=== PATIENT | male | born 1980 | race African-American/Black ===

== ENCOUNTER 2017-01-01 11:54 | Inpatient (IN) | payer OTHER ==
[2017-01-01 12:00] VITALS: BMI 26.1
--- NOTE | 2017-01-01 15:08 | HP ---
CIWA Score - CIWA Score Nausea/Vomitin Muscle Tremors: 3 Anxiety: 3 Agitation: 3 Paroxysmal Sweats: 2 Orientation: 0-Oriented Tacttile Disturbances: 2-Mild Itch/Numbness/Burn Auditory Disturbances: 2-Mild Harshness/Frighten Visual Disturbances: 2-Mild Sensitivity Headache: 2-Mild CIWA-Ar Total Score: 22 Admission ROS BHS - HPI Chief Complaint: i need help to stop drinking alcohol Allergies/Adverse Reactions: Allergies Allergy/AdvReac Type Severity Reaction Status Date / Time lactose Allergy Mild Verified 01/01/17 14:42 History of Present Illness: this 36 years old male with alcohol and cocaine dependence,seeking detox,never been in treatment before migraine headache depression ptsd syncope alcohol related hypertension asthma arthritis Exam Limitations: No Limitations - Ebola screening Have you traveled outside of the country in the last 21 days: No Have you had contact with anyone from an Ebola affected area: No Have you been sick,other than usual withdrawal symptoms: No Do you have a fever: No - Review of Systems Constitutional: Loss of Appetite, Malaise, Night Sweats, Changes in sleep EENT: reports: Tearing, Nose Congestion Respiratory: reports: No Symptoms reported Cardiac: reports: No Symptoms Reported GI: reports: Diarrhea, Nausea, Vomiting, Abdominal cramping : reports: No Symptoms Reported Musculoskeletal: reports: Back Pain, Muscle Pain Integumentary: reports: Dryness Neuro: reports: Headache, Tremors Endocrine: reports: No Symptoms Reported Hematology: reports: No Symptoms Reported Psychiatric: reports: No Sypmtoms Reported, Judgement Intact, Mood/Affect Appropiate, Orientated x3, Depressed Patient History - Patient Medical History Hx Asthma: Yes (Pt is on MDI for asthma.) Hx Chronic Obstructive Pulmonary Disease (COPD): No Hx Cardiac Disorders: No Hx Hypertension: Yes (not on meds.) Hx Seizures: No Hx Diabetes: No Hx Gastrointestinal Disorders: No Hx Liver Disease: No Hx Genitourinary Disorders: No Hx Sexually Transmitted Disorders: No Hx Renal Disease (ESRD): No Hx Thyroid Disease: No Hx Human Immunodeficiency Virus (HIV): No (years ago negative) Hx Hepatitis C: No Hx Depression: Yes Hx Suicide Attempt: Yes (tried to overdose 1 year ago.) Hx Bipolar Disorder: No Hx Schizophrenia: No Other Medical History: no suicidal,no homicidal - Patient Surgical History Past Surgical History: No - PPD History Previous Implant?: Yes Documented Results: Negative w/o proof Implanted On Prior [facility] Admission?: No PPD to be Administered?: Yes - Smoking Cessation Smoking history: Current every day smoker Have you smoked in the past 12 months: Yes Aproximately how many cigarettes per day: 20 Hx Chewing Tobacco Use: No Initiated information on smoking cessation: Yes 'Breaking Loose' booklet given: 01/01/17 - Substance & Tx. History Hx Alcohol Use: Yes Hx Substance Use: Yes Substance Use Type: Alcohol, Cocaine, Heroin Hx Substance Use Treatment: No - Substances Abused Heroin Route: Inhalation Frequency: Daily Amount used: 10-20 bags Age of first use: 21 Date of Last Use: 12/31/16 Cocaine Route: Smoking Frequency: Daily Amount used: $200-300 Age of first use: 21 Date of Last Use: 12/31/16 Alcohol Route: Oral Frequency: Daily Amount used: 3 40 oz beers Age of first use: 17 Date of Last Use: 12/31/16 Family Disease History - Family Disease History Family History: Denies Admission Physical Exam [facility] - Vital Signs Vital Signs: Vital Signs - 24 hr 01/01/17 11:58 Temperature 98.8 F Pulse Rate 80 Respiratory 18 Rate Blood Pressure 140/90 - Physical General Appearance: Yes: Moderate Distress, Tremorous, Irritable, Sweating, Anxious HEENTM: Yes: Normal ENT Inspection, MARY ANNE, Pharynx Normal Respiratory: Yes: Lungs Clear, Normal Breath Sounds, No Respiratory Distress Neck: Yes: Within Normal Limits Breast: Yes: Breast Exam Deferred Cardiology: Yes: Within Normal Limits, Regular Rhythm, Regular Rate, S1, S2 Abdominal: Yes: Within Normal Limits, Normal Bowel Sounds, Non Tender, Flat, Soft Genitourinary: Yes: Within Normal Limits Back: Yes: Muscle Spasm Musculoskeletal: Yes: full range of Motion, Back pain, Joint Stiffness, Muscle Pain Extremities: Yes: Normal Range of Motion, Tremors Neurological: Yes: Within Normal Limits, electrical controls technician II-XII NML intact, Fully Oriented, Alert, Motor Strength 5/5 Integumentary: Yes: Dry Lymphatic: Yes: Within Normal Limits - Diagnostic (1) Opioid dependence with withdrawal Current Visit: Yes Status: Acute (2) Alcohol dependence with uncomplicated withdrawal Current Visit: Yes Status: Acute (3) Cocaine dependence Current Visit: Yes Status: Acute (4) Migraine headache Current Visit: Yes Status: Acute (5) Depression Current Visit: Yes Status: Acute (6) PTSD (post-traumatic stress disorder) Current Visit: Yes Status: Acute (7) Syncope Current Visit: Yes Status: Acute (8) Arthritis Current Visit: Yes Status: Acute Cleared for Admission [facility] - Detox or Rehab [facility] Level of Care: Medically Managed Detox Regimen/Protocol: Methadone/Librium S Breath Alcohol Content Breath Alcohol Content: 0 Urine Drug Screen - Results Drug Screen Negative: No Urine Drug Screen Results: DIMAS-Cocaine, OPI-Opiates
[2017-01-01] MEDS ORDERED: NICOTINE POLACRILEX 2 MG GUM BUC PRN (15:26)
[2017-01-01] MEDS ORDERED: hydrOXYzine PAMOATE 25 MG CAPSULE (FP) PO PRN (15:26)
[2017-01-01] MEDS ORDERED: MAGNESIUM CITRATE 300 ML BOTTLE PO PRN (15:26)
[2017-01-01] MEDS ORDERED: P-EPHED 60MG/TRIPROLIDI 2.5MG TABLET PO PRN (15:26)
[2017-01-01] MEDS ORDERED: guaiFENesin/D-METHORPHAN HB 10 ML UNIT-DOSE CUPS PO PRN (15:26)
[2017-01-01] MEDS ORDERED: MENTHOL/PHENOL 1 EACH UD MM PRN (15:26)
[2017-01-01] MEDS ORDERED: LOPERAMIDE HCL 2 MG CAPSULE PO PRN (15:26)
[2017-01-01] MEDS ORDERED: chlordiazePOXIDE HCL 25 MG CAPSULE PO PRN (15:26)
[2017-01-01] MEDS ORDERED: MAG HYDROX/AL HYDROX/SIMETH 30 ML UNIT-DOSE CUP PO PRN (15:26)
[2017-01-01] MEDS ORDERED: ACETAMINOPHEN 325 MG TABLET (FP) PO PRN (15:26)
[2017-01-01] MEDS ORDERED: MAGNESIUM HYDROX 2400MG/30ML ORAL SUSPENSION 30 ML CUP PO PRN (15:26)
[2017-01-01] MEDS ORDERED: ALBUTEROL SO4 18 GM HFA INHALER IH PRN (15:29)
[2017-01-01] MEDS ORDERED: METHADONE HCL 10 MG TABLET (FOR DETOX USE ONLY) PO ONE ×2 (15:41→23:00)
[2017-01-01] MEDS ORDERED: chlordiazePOXIDE HCL 25 MG CAPSULE PO ONE (15:41)
[2017-01-01] MEDS ORDERED: METHADONE HCL 10 MG TABLET (FOR DETOX USE ONLY) ONE (18:05)
[2017-01-01] MEDS: chlordiazePOXIDE HCL 25 MG CAPSULE PO SCH ×2 (18:24→22:09)
[2017-01-01] MEDS: NICOTINE 21 MG/24 HOURS TOPICAL PATCH TD SCH (18:25)
[2017-01-01] MEDS: THIAMINE HCL 100 MG TABLET (FP) PO SCH (22:08)
[2017-01-01] MEDS: IBUPROFEN 400 MG TABLET (FP) PO PRN (22:11)
[2017-01-02 01:50] LABS: PH,URINE 7.5 (5.0-8.0); URINE APPEARANCE CLEAR; URINE BILIRUBIN NEGATIVE (NEGATIVE); URINE BLOOD NEGATIVE (NEGATIVE); URINE COLOR YELLOW; URINE GLUCOSE (UA) NEGATIVE (NEGATIVE); URINE KETONE NEGATIVE (NEGATIVE); URINE NITRITE NEGATIVE (NEGATIVE); URINE PROTEIN TRACE (NEGATIVE); URINE UROBILINOGEN 0.2 mg/dL (0.2-1.0)
[2017-01-02] MEDS: chlordiazePOXIDE HCL 25 MG CAPSULE PO SCH ×4 (05:46→22:07)
[2017-01-02 09:48] LABS: MCHC 31.9 g/dl (32.0-35.9); MEAN CELL VOLUME 75.1 fl (80-96); MEAN PLT VOLUME 9.4 fl (7.5-11.1); PLATELET COUNT 245 K/MM3 (134-434); RDW 14.1 % (11.9-15.9); WHITE BLOOD COUNT 9.3 K/mm3 (4.0-10.0)
[2017-01-02 09:54] LABS: URINE LEUK ESTERASE Negative (NEGATIVE)
--- NOTE | 2017-01-02 09:57 | EKG ---
Test Reason : Blood Pressure : / mmHG Vent. Rate : 080 BPM Atrial Rate : 080 BPM P-R Int : 138 ms QRS Dur : 096 ms QT Int : 386 ms P-R-T Axes : 077 067 032 degrees QTc Int : 445 ms NORMAL SINUS RHYTHM INCOMPLETE RIGHT BUNDLE BRANCH BLOCK NO PREVIOUS ECGS AVAILABLE Confirmed by SIMRAN NGUYEN MD ([id number]) on 01/02/2017 9:56:56 AM Referred By: Confirmed By:SIMRAN NGUYEN MD
[2017-01-02] MEDS ORDERED: METHADONE HCL 10 MG TABLET (FOR DETOX USE ONLY) PO SCH (10:00)
[2017-01-02 10:07] LABS: ALBUMIN 3.8 g/dl (3.4-5.0); ALK PHOS 61 U/L (45-117); ANION GAP 7 (8-16); BILIRUBIN,TOTAL 0.6 mg/dL (0.2-1.0); CALCIUM 8.7 mg/dL (8.5-10.1); CO2 24 mmol/L (21-32); CREATININE 1.2 mg/dL (0.7-1.3); GLUCOSE,RANDOM 106 mg/dL (74-106); SGOT/AST 28 U/L (15-37); SGPT/ALT 49 U/L (12-78)
[2017-01-02] MEDS: PRENATAL VITAMINS W/ FOLIC ACID TABLET (FP) PO SCH (10:16)
[2017-01-02] MEDS: NICOTINE 21 MG/24 HOURS TOPICAL PATCH TD SCH (10:17)
[2017-01-02] MEDS: IBUPROFEN 400 MG TABLET (FP) PO PRN ×2 (10:20→17:22)
--- NOTE | 2017-01-02 11:15 | PN ---
[facility] CIWA - CIWA Score Nausea/Vomitin Muscle Tremors: 3 Anxiety: 3 Agitation: 3 Paroxysmal Sweats: 1-Minimal Palms Moist Orientation: 0-Oriented Tacttile Disturbances: 1-Very Mild Itch/Numbness Auditory Disturbances: 1-Very Mild Visual Disturbances: 0-None Headache: 2-Mild CIWA-Ar Total Score: 17 BHS COWS - Scale Resting Pulse: 0= SC 80 or Below Sweatin= Chills/Flushing Restless Observation: 3= Extraneous Movement Pupil Size: 1= Pupils >than Normal Bone or Joint Aches: 2= Severe Diffuse Aches Runny Nose/ Eye Tearin= Runny Nose/Eyes GI Upset > 30mins: 2= Nausea/Diarrhea Tremor Observation of Outstretched Hands: 2= Slight Tremor Visible Yawning Observation: 1= 1-2x During Session Anxiety or Irritability: 2=Irritable/Anxious Goose Flesh Skin: 0=Smooth Skin COWS Score: 16 S Progress Note (SOAP) Subjective: ALERT,IRRITABLE,ANXIOUS,INTERRUPTED SLEEP,PAIN IN THE BODY AND BACK,NASAL CONGESTION Objective: 01/02/17 11:13 Vital Signs Temperature 97.1 F L 01/02/17 09:31 Pulse Rate 71 01/02/17 09:31 Respiratory Rate 18 01/02/17 09:31 Blood Pressure 115/75 01/02/17 09:31 O2 Sat by Pulse Oximetry (%) EKG NSR,NORMAL ECG Laboratory Last Values WBC 9.3 K/mm3 (4.0-10.0) 01/02/17 06:00 RBC 5.41 M/mm3 (4.00-5.60) 01/02/17 06:00 Hgb 12.9 GM/dL (11.7-16.9) 01/02/17 06:00 Hct 40.6 % (35.4-49) 01/02/17 06:00 MCV 75.1 fl (80-96) L 01/02/17 06:00 MCH 24.0 pg (25.7-33.7) L 01/02/17 06:00 MCHC 31.9 g/dl (32.0-35.9) L 01/02/17 06:00 RDW 14.1 % (11.9-15.9) 01/02/17 06:00 Plt Count 245 K/MM3 (134-434) 01/02/17 06:00 MPV 9.4 fl (7.5-11.1) 01/02/17 06:00 Sodium 141 mmol/L (136-145) 01/02/17 06:00 Potassium 4.1 mmol/L (3.5-5.1) 01/02/17 06:00 Chloride 110 mmol/L (98-107) H 01/02/17 06:00 Carbon Dioxide 24 mmol/L (21-32) 01/02/17 06:00 Anion Gap 7 (8-16) L 01/02/17 06:00 BUN 9 mg/dL (7-18) 01/02/17 06:00 Creatinine 1.2 mg/dL (0.7-1.3) 01/02/17 06:00 Creat Clearance w eGFR > 60 (>60) 01/02/17 06:00 Random Glucose 106 mg/dL (74-106) 01/02/17 06:00 Calcium 8.7 mg/dL (8.5-10.1) 01/02/17 06:00 Total Bilirubin 0.6 mg/dL (0.2-1.0) 01/02/17 06:00 AST 28 U/L (15-37) 01/02/17 06:00 ALT 49 U/L (12-78) 01/02/17 06:00 Alkaline Phosphatase 61 U/L (45-117) 01/02/17 06:00 Total Protein 7.0 g/dl (6.4-8.2) 01/02/17 06:00 Albumin 3.8 g/dl (3.4-5.0) 01/02/17 06:00 Urine Color Yellow 01/01/17 22:30 Urine Appearance Clear 01/01/17 22:30 Urine pH 7.5 (5.0-8.0) 01/01/17 22:30 Ur Specific [place] 1.020 (1.001-1.035) 01/01/17 22:30 Urine Protein Trace (NEGATIVE) H 01/01/17 22:30 Urine Glucose (UA) Negative (NEGATIVE) 01/01/17 22:30 Urine Ketones Negative (NEGATIVE) 01/01/17 22:30 Urine Blood Negative (NEGATIVE) 01/01/17 22:30 Urine Nitrite Negative (NEGATIVE) 01/01/17 22:30 Urine Bilirubin Negative (NEGATIVE) 01/01/17 22:30 Urine Urobilinogen 0.2 mg/dL (0.2-1.0) 01/01/17 22:30 Ur Leukocyte Esterase Negative (NEGATIVE) 01/01/17 22:30 Assessment: 01/02/17 11:15 WITHDRAWAL SYMPTOM Plan: CONTINUE DETOX
[2017-01-02] MEDS ORDERED: PNEUMOC 13-VAL CONJ-DIP CRM/PF 0.5 ML DISP.SYRIN IM ONE (12:00)
[2017-01-02] MEDS ORDERED: FLU VACCINE QUAD 60 MCG/0.5 ML (MDV 17-18) IM ONE (12:00)
[2017-01-02] MEDS ORDERED: PNEUMOCOCCAL 23 VACCINE 0.5 ML VIAL IM ONE (12:00)
[2017-01-02] MEDS: FLUTICASONE PROP 0.05% 16 GM NASAL SPRAY NS SCH ×2 (12:19→22:07)
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
[2017-01-02] MEDS: THIAMINE HCL 100 MG TABLET (FP) PO SCH (22:07)
[2017-01-02] MEDS: QUEtiapine FUMARATE 100 MG TABLET (FP) PO SCH (22:07)
[2017-01-03] MEDS: chlordiazePOXIDE HCL 25 MG CAPSULE PO SCH ×2 (05:54→10:13)
[2017-01-03] MEDS: FLUTICASONE PROP 0.05% 16 GM NASAL SPRAY NS SCH ×2 (10:13→22:03)
[2017-01-03] MEDS: PRENATAL VITAMINS W/ FOLIC ACID TABLET (FP) PO SCH (10:13)
[2017-01-03] MEDS: QUEtiapine FUMARATE 100 MG TABLET (FP) PO SCH ×2 (10:13→22:03)
[2017-01-03] MEDS: METHADONE HCL 5 MG TABLET (FOR DETOX USE ONLY) PO SCH (10:13)
[2017-01-03] MEDS: NICOTINE 21 MG/24 HOURS TOPICAL PATCH TD SCH (10:14)
--- NOTE | 2017-01-03 16:07 | PN ---
[facility] CIWA - CIWA Score Nausea/Vomitin-No Nausea/No Vomiting Muscle Tremors: 3 Anxiety: 4-Mod. Anxious/Guarded Agitation: 3 Paroxysmal Sweats: 3 Orientation: 0-Oriented Tacttile Disturbances: 0-None Auditory Disturbances: 0-None Visual Disturbances: 0-None Headache: 0-None Present CIWA-Ar Total Score: 13 S Progress Note (SOAP) Subjective: Anxiety,tremors,sweating,interrupted sleep,restless. Objective: 01/03/17 16:06 Vital Signs - 8 hr 01/03/17 01/03/17 10:14 14:56 Temperature 97.0 F L 96.8 F L Pulse Rate 78 83 Respiratory 16 20 Rate Blood Pressure 127/68 103/59 Laboratory Last Values WBC 9.3 K/mm3 (4.0-10.0) 01/02/17 06:00 RBC 5.41 M/mm3 (4.00-5.60) 01/02/17 06:00 Hgb 12.9 GM/dL (11.7-16.9) 01/02/17 06:00 Hct 40.6 % (35.4-49) 01/02/17 06:00 MCV 75.1 fl (80-96) L 01/02/17 06:00 MCH 24.0 pg (25.7-33.7) L 01/02/17 06:00 MCHC 31.9 g/dl (32.0-35.9) L 01/02/17 06:00 RDW 14.1 % (11.9-15.9) 01/02/17 06:00 Plt Count 245 K/MM3 (134-434) 01/02/17 06:00 MPV 9.4 fl (7.5-11.1) 01/02/17 06:00 Sodium 141 mmol/L (136-145) 01/02/17 06:00 Potassium 4.1 mmol/L (3.5-5.1) 01/02/17 06:00 Chloride 110 mmol/L (98-107) H 01/02/17 06:00 Carbon Dioxide 24 mmol/L (21-32) 01/02/17 06:00 Anion Gap 7 (8-16) L 01/02/17 06:00 BUN 9 mg/dL (7-18) 01/02/17 06:00 Creatinine 1.2 mg/dL (0.7-1.3) 01/02/17 06:00 Creat Clearance w eGFR > 60 (>60) 01/02/17 06:00 Random Glucose 106 mg/dL (74-106) 01/02/17 06:00 Calcium 8.7 mg/dL (8.5-10.1) 01/02/17 06:00 Total Bilirubin 0.6 mg/dL (0.2-1.0) 01/02/17 06:00 AST 28 U/L (15-37) 01/02/17 06:00 ALT 49 U/L (12-78) 01/02/17 06:00 Alkaline Phosphatase 61 U/L (45-117) 01/02/17 06:00 Total Protein 7.0 g/dl (6.4-8.2) 01/02/17 06:00 Albumin 3.8 g/dl (3.4-5.0) 01/02/17 06:00 Urine Color Yellow 01/01/17 22:30 Urine Appearance Clear 01/01/17 22:30 Urine pH 7.5 (5.0-8.0) 01/01/17 22:30 Ur Specific [place] 1.020 (1.001-1.035) 01/01/17 22:30 Urine Protein Trace (NEGATIVE) H 01/01/17 22:30 Urine Glucose (UA) Negative (NEGATIVE) 01/01/17 22:30 Urine Ketones Negative (NEGATIVE) 01/01/17 22:30 Urine Blood Negative (NEGATIVE) 01/01/17 22:30 Urine Nitrite Negative (NEGATIVE) 01/01/17 22:30 Urine Bilirubin Negative (NEGATIVE) 01/01/17 22:30 Urine Urobilinogen 0.2 mg/dL (0.2-1.0) 01/01/17 22:30 Ur Leukocyte Esterase Negative (NEGATIVE) 01/01/17 22:30 RPR Titer Nonreactive (NONREACTIVE) 01/02/17 06:00 labs noted Assessment: 01/03/17 16:07 Withdrawal sx. Plan: Continue detox
[2017-01-03] MEDS: chlordiazePOXIDE 5 MG CAPSULE PO SCH ×2 (17:24→22:03)
[2017-01-03] MEDS: THIAMINE HCL 100 MG TABLET (FP) PO SCH (22:03)
[2017-01-04] MEDS: chlordiazePOXIDE 5 MG CAPSULE PO SCH ×2 (06:00→10:14)
[2017-01-04] MEDS: PRENATAL VITAMINS W/ FOLIC ACID TABLET (FP) PO SCH (10:13)
[2017-01-04] MEDS: QUEtiapine FUMARATE 100 MG TABLET (FP) PO SCH ×2 (10:13→22:05)
[2017-01-04] MEDS: NICOTINE 21 MG/24 HOURS TOPICAL PATCH TD SCH (10:13)
[2017-01-04] MEDS: FLUTICASONE PROP 0.05% 16 GM NASAL SPRAY NS SCH ×2 (10:14→22:06)
[2017-01-04] MEDS: METHADONE HCL 5 MG TABLET (FOR DETOX USE ONLY) PO SCH (10:14)
[2017-01-04] MEDS: IBUPROFEN 400 MG TABLET (FP) PO PRN (10:17)
--- NOTE | 2017-01-04 12:57 | PN ---
BHS Progress Note (SOAP) Subjective: Sweating,interrupted sleep,restless Objective: 01/04/17 12:56 Vital Signs - 8 hr 01/04/17 01/04/17 06:00 10:00 Temperature 97.7 F 98.1 F Pulse Rate 77 92 H Respiratory 18 16 Rate Blood Pressure 123/65 123/74 Laboratory Tests 01/01/17 01/02/17 01/02/17 22:30 06:00 06:00 WBC 9.3 RBC 5.41 Hgb 12.9 Hct 40.6 MCV 75.1 L MCH 24.0 L MCHC 31.9 L RDW 14.1 Plt Count 245 MPV 9.4 Sodium 141 Potassium 4.1 Chloride 110 H Carbon Dioxide 24 Anion Gap 7 L BUN 9 Creatinine 1.2 Creat Clearance w eGFR > 60 Random Glucose 106 Calcium 8.7 Total Bilirubin 0.6 AST 28 ALT 49 Alkaline Phosphatase 61 Total Protein 7.0 Albumin 3.8 Urine Color Yellow Urine Appearance Clear Urine pH 7.5 Ur Specific [place] 1.020 Urine Protein Trace H Urine Glucose (UA) Negative Urine Ketones Negative Urine Blood Negative Urine Nitrite Negative Urine Bilirubin Negative Urine Urobilinogen 0.2 Ur Leukocyte Esterase Negative RPR Titer 01/02/17 06:00 WBC RBC Hgb Hct MCV MCH MCHC RDW Plt Count MPV Sodium Potassium Chloride Carbon Dioxide Anion Gap BUN Creatinine Creat Clearance w eGFR Random Glucose Calcium Total Bilirubin AST ALT Alkaline Phosphatase Total Protein Albumin Urine Color Urine Appearance Urine pH Ur Specific [place] Urine Protein Urine Glucose (UA) Urine Ketones Urine Blood Urine Nitrite Urine Bilirubin Urine Urobilinogen Ur Leukocyte Esterase RPR Titer Nonreactive labs noted Assessment: 01/04/17 12:56 Withdrawal sx. Plan: Continue detox
[2017-01-04] MEDS: chlordiazePOXIDE HCL 10 MG CAPSULE PO SCH ×2 (18:02→22:05)
[2017-01-04] MEDS: THIAMINE HCL 100 MG TABLET (FP) PO SCH (22:05)
[2017-01-05] MEDS: chlordiazePOXIDE HCL 10 MG CAPSULE PO SCH (06:07)
[2017-01-05] MEDS ORDERED: CYCLOBENZAPRINE HCL 10 MG TABLET (FP) PO PRN (08:33)
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
[2017-01-05] MEDS ORDERED: METHADONE HCL 10 MG TABLET (FOR DETOX USE ONLY) PO SCH (10:00)
[2017-01-05 10:22] VITALS: BP 122/55; PULSE 82; TEMP 97.9
--- NOTE | 2017-01-05 14:06 | DS ---
[facility] Detox Discharge Summary Admission Date: 01/01/17 Discharge Date: 01/05/17 (to home) - History Present History: Alcohol Dependence, Opioid Dependence - Physical Exam Results Vital Signs: Vital Signs Temperature 97.9 F 01/05/17 10:21 Pulse Rate 82 01/05/17 10:21 Respiratory Rate 18 01/05/17 10:21 Blood Pressure 122/55 01/05/17 10:21 O2 Sat by Pulse Oximetry (%) - Treatment Hospital Course: Discharged Condition Good - Medication Discharge Medications: Ambulatory Orders Albuterol Sulfate Inhaler - [Ventolin Hfa Inhaler -] 2 inh PO Q4H PRN 01/01/17 Ibuprofen 800 mg PO Q6H 01/01/17 Quetiapine Fumarate [Seroquel -] 300 mg PO BID 01/01/17 Quetiapine Fumarate [Seroquel -] 200 mg PO HS #30 tab 01/05/17 - Diagnosis (1) Alcohol dependence with uncomplicated withdrawal Status: Chronic (2) Arthritis Status: Chronic (3) Asthma Status: Chronic Qualifiers: Asthma severity: mild (4) Bipolar disorder Status: Acute (5) Cocaine dependence Status: Chronic Qualifiers: Substance use status: uncomplicated Qualified Code(s): F14.20 - Cocaine dependence, uncomplicated; F14.20 - Cocaine dependence, uncomplicated; F14.20 - Cocaine dependence, uncomplicated (6) Depression Status: Acute (7) Migraine headache Status: Acute (8) Opioid dependence with withdrawal Status: Chronic (9) Substance induced mood disorder Status: Acute (10) Syncope Status: Acute (11) PTSD (post-traumatic stress disorder) Status: Suspected - AMA Did Patient Leave Against Medical Advice: No (non compliance with unit rules)
[2017-01-06] MEDS ORDERED: METHADONE HCL 5 MG TABLET (FOR DETOX USE ONLY) PO SCH (06:00)
== END 2017-01-05 08:49 | disposition home or self-care (01) | DRG 773 ==
LOC: YASAS 11:54 → Y6N 15:07
PROVIDERS: ADMIT Internal Medicine; ATTEND Internal Medicine
PROC: HZ2ZZZZ Detoxification Services for Substance Abuse Treatment (ICD-10-PCS; principal; 2017-01-01)
DX: F11.23 Opioid dependence with withdrawal (principal); F10.230 Alcohol dependence with withdrawal, uncomplicated; F14.20 Cocaine dependence, uncomplicated; F17.210 Nicotine dependence, cigarettes, uncomplicated; F19.24 Other psychoactive substance dependence with psychoactive substance-induced mood disorder; F31.9 Bipolar disorder, unspecified; F32.9 Major depressive disorder, single episode, unspecified; F43.10 Post-traumatic stress disorder, unspecified; F91.8 Other conduct disorders; M19.90 Unspecified osteoarthritis, unspecified site; J45.30 Mild persistent asthma, uncomplicated; Z91.19 Patient's noncompliance with other medical treatment and regimen; Z91.011 Allergy to milk products; Z86.79 Personal history of other diseases of the circulatory system; Z86.69 Personal history of other diseases of the nervous system and sense organs; Z91.5 Personal history of self-harm
CPT/HCPCS: 36415; 80053; 81003; 85027; 86593; 90688; 90732; 93005; 93010; G0008; G0009